=== PATIENT | male | born 2000 | race Caucasian/White ===

== ENCOUNTER 2019-02-09 20:07 | Emergency (ER) | payer OTHER ==
[~2019-02-09] VITALS: Ht 188 cm; Wt 137.4 kg
[2019-02-09 20:11] VITALS: BP 130/100
--- NOTE | 2019-02-09 20:17 | NUR ---
PT AMBULATED BACK TO [facility] Addendum: 02/09/19 at 2219 by EMMIE STEADY GAIT ESCORTED BY MOTHER.
--- NOTE | 2019-02-09 20:32 | NUR ---
PT AMBULATED TO BED 09.
--- NOTE | 2019-02-09 20:42 | NUR ---
PT C/O RIGHT SHOULDER PAIN. PT TRIED TO HOP OVER A FENCE AND FELT A POP IN THE SHOULDER. NO DEFORMITY, +CMS, FULL ROM OF ELBOW AND WRIST. -ROM OF SHOULDER. DENIES OTHER SYMPTOMS AT THIS TIME.
--- NOTE | 2019-02-09 20:53 | NUR ---
X-Ray at bedside.
--- NOTE | 2019-02-09 22:05 | NUR ---
Dr. Prajapati evaluating patient at bedside.
--- NOTE | 2019-02-09 22:13 | NUR ---
PT REPORTS HE WANTS TO LEAVE. DR. BRADLEY MADE AWARE. SHE STATES "I JUST EXAMINED HIM AND I'M WAITING FOR HIS X-RAY REPORT." I ADVISED HER THAT THE REPORT WAS READY AND SHE STATED SHE WOULD REVIEW IT. PT DOES NOT WANT TO WAIT FOR RESULTS. PT STATES "I'M GOOD." I ADVISED THE PATIENT HIS X-RAY REPORT WAS COMPLETED AND DR. BRADLEY WAS REVIEWING IT AT THIS TIME. PT DOES NOT WISH TO WAIT AND WANTS TO LEAVE. PT WALKED OUT OF FACILITY WITHOUT DISCHARGE INSTRUCTIONS.
[2019-02-09 22:18] VITALS: BP 130/100
--- NOTE | 2019-02-09 22:19 | NUR ---
PATIENT LEFT WITHOUT DISCHARGE PAPERWORK OR INSTRUCTIONS.
== END 2019-02-09 22:13 | disposition home or self-care (01) ==
LOC: MED 20:07
DX: S40.011A Contusion of right shoulder, initial encounter (principal); J45.909 Unspecified asthma, uncomplicated; X58.XXXA Exposure to other specified factors, initial encounter; Y93.39 Activity, other involving climbing, rappelling and jumping off; Y92.89 Other specified places as the place of occurrence of the external cause; Y99.8 Other external cause status
CPT/HCPCS: 73030; 99283